=== PATIENT | female | born 1940 | race Caucasian/White ===

== ENCOUNTER 2022-12-27 16:42 | Inpatient (IN) | payer MEDICARE, OTHER ==
[~2022-12-27 16:42] MED LIST: Iopamidol-370 76% 500 ML 1 ML ONE
[2022-12-27 17:30] LABS: #Basophils 0.1 thou/uL (0.0-0.2); #Eosinphils 0.5 thou/uL (0.0-0.7); #Lymphocytes 1.7 thou/uL (1.20-3.40); #Monocytes 0.6 thou/uL (0.11-0.59); %Basophils 1.6 % (0.0-1.0); %Eosinophils 7.8 % (0.0-10.0); %Lymphocytes 29.5 % (21.0-51.0); %Monocytes 9.4 % (0.0-10.0); %Neutrophils 51.7 % (42.0-75.0); Hemoglobin 13.6 g/dL (12.0-16.0); Mean Corpuscular HGB CONC 32.3 g/dL (32.0-36.0); Mean Corpuscular Hemoglobin 29.5 pg (27.0-31.0); Mean Corpuscular Volume 91.3 fl (78.0-98.0); Mean Platelet Volume 8.5 fL (7.4-10.4); Platelet Count 200 10x3/uL (130-400); RBC Distribution Width 12.1 % (11.5-14.5); White Blood Cell (WBC) Count 5.8 10x3/uL (4.8-10.8)
[2022-12-27] MEDS ORDERED: Diltiazem 125 MG/25 ML ONE (17:49)
[2022-12-27] MEDS ORDERED: niCARdipine 25 MG/10 ML VIAL ONE ×2 (17:51)
[2022-12-27] MEDS ORDERED: Tenecteplase 50 MG ONE (17:51)
[2022-12-27 18:09] LABS: ALT (SGPT) 22 U/L (8-55); AST (SGOT) 24 U/L (5-34); Albumin 3.9 g/dL (3.4-4.8); Alkaline Phosphatase 98 U/L (40-110); Anion Gap 17 mmol/L (10-20); BUN (Urea Nitrogen) 22 mg/dL (9.8-20.1); Bilirubin, Total 0.4 mg/dL (0.2-1.2); Calc. Creatinine Clearance 0 mL/min (70-130); Calcium 9.3 mg/dL (7.8-10.44); Carbon Dioxide 19 mmol/L (23-31); Chloride 107 mmol/L (98-107); Estimated GFR 78; Globulin 3.3 g/dL (2.4-3.5); Glucose 82 mg/dL (83-110); Potassium 4.3 mmol/L (3.5-5.1); Protein, Total 7.2 g/dL (5.8-8.1); Sodium 139 mmol/L (136-145)
[2022-12-27 20:16] LABS: SARS-CoV-2 NAA Rapid Test Not Detected (NotDetected)
[2022-12-27] MEDS ORDERED: hydrALAZINE 20 MG/ML VIAL SLOW IVP PRN (20:30)
[2022-12-27] MEDS ORDERED: niCARdipine 25 MG in Sodium Chloride 0.9% 250 ML 250 ML IVPB PRN (20:30)
[2022-12-27] MEDS ORDERED: Labetalol HCl 100 MG/20 ML VIAL SLOW IVP PRN (20:30)
[2022-12-27] MEDS ORDERED: Acetaminophen 325 MG TAB PO PRN (20:37)
[2022-12-27] MEDS ORDERED: Ondansetron PF 4 MG/2 ML Vial IVP PRN (20:37)
[2022-12-27] MEDS ORDERED: Acetaminophen 650 MG Suppository PR PRN (20:37)
[2022-12-27] MEDS ORDERED: Ondansetron ODT 4 MG TAB PO PRN (20:37)
[2022-12-27] MEDS ORDERED: Electrolyte Replacement Protocol 1 EACH FS PRN (20:40)
[2022-12-27 20:42] VITALS: BMI 27.8
[2022-12-27] MEDS ORDERED: Milk Of Magnesia 30 ML UDCUP PO PRN (21:06)
[2022-12-27] MEDS ORDERED: Bisacodyl 10 MG SUPP PR PRN (21:06)
[2022-12-27] MEDS ORDERED: Communication Order-Pharmacy FS SCH (21:06)
[2022-12-27] MEDS: Dextrose 5 % And 0.9 % NaCl 1,000 ML IV SCH (21:32)
[2022-12-27] MEDS: Famotidine/PF 20 mg/2ml Vial SLOW IVP SCH (21:33)
[2022-12-27] MEDS: Communication Order-Pharmacy FS SCH (21:33)
[2022-12-27] MEDS: Atorvastatin Calcium 40 MG TAB PO SCH (21:49)
[2022-12-28] MEDS ORDERED: FLU VACC QS2022-23(65YR UP)/PF 240 MCG/0.7 ML SYRINGE IM ONE (07:30)
[2022-12-28] MEDS: Dextrose 5 % And 0.9 % NaCl 1,000 ML IV SCH (09:25)
[2022-12-28 09:31] LABS: Bilirubin Negative (Negative); Blood, Urine 2+ (Negative); Clarity Clear (Clear); Glucose, Urine (Dipstick) Normal (Negative); Ketone, Urine Negative (Negative); Leukocyte Negative Leu/uL (Negative); Nitrite Negative (Negative); Protein, Urine (Dipstick) Negative (Neg-Trace); RBC/HPF 21-50 HPF (0-3); Specific Gravity, Urine 1.025 (1.002-1.036); Squamous Epithelial 0-3 HPF (0-3); Urobilinogen Normal mg/dL (Less than 2); pH, Urine 6.5 (5.0-9.0)
[2022-12-28 09:41] LABS: Bacteria/HPF 2+ HPF (None Seen); WBC/HPF 0-3 HPF (0-3)
[2022-12-28] MEDS: Famotidine/PF 20 mg/2ml Vial SLOW IVP SCH ×2 (10:27→20:27)
[2022-12-28] MEDS: Montelukast Sodium 10 mg Tablet PO SCH (11:16)
[2022-12-28 18:57] LABS: #Eosinphils 0.2 thou/uL (0.0-0.7); #Lymphocytes 1.5 thou/uL (1.20-3.40); #Monocytes 0.8 thou/uL (0.11-0.59); #Neutrophils 4.9 thou/uL (1.40-6.50); %Basophils 0.5 % (0.0-1.0); %Eosinophils 3.2 % (0.0-10.0); %Lymphocytes 20.5 % (21.0-51.0); %Monocytes 10.6 % (0.0-10.0); %Neutrophils 65.2 % (42.0-75.0); Hemoglobin 12.3 g/dL (12.0-16.0); Mean Corpuscular HGB CONC 33.3 g/dL (32.0-36.0); Mean Corpuscular Hemoglobin 30.2 pg (27.0-31.0); Mean Corpuscular Volume 90.8 fl (78.0-98.0); Mean Platelet Volume 8.1 fL (7.4-10.4); Platelet Count 199 10x3/uL (130-400); RBC Distribution Width 12.1 % (11.5-14.5); Red Blood Cell (RBC) Count 4.08 mill/uL (4.20-5.40); White Blood Cell (WBC) Count 7.5 10x3/uL (4.8-10.8)
[2022-12-28 19:19] LABS: Anion Gap 10 mmol/L (10-20); BUN (Urea Nitrogen) 7 mg/dL (9.8-20.1); Calc. Creatinine Clearance 84 mL/min (70-130); Carbon Dioxide 24 mmol/L (23-31); Cardiac Risk 4.4 (Less than 4.5); Chloride 107 mmol/L (98-107); Cholesterol 236 mg/dl (< 200 Desired); Estimated GFR 88; Glucose 102 mg/dL (83-110); HDL Cholesterol 54 mg/dL (>60 Neg Risk); LDL Cholesterol, Calculated 160 mg/dL; Potassium 3.2 mmol/L (3.5-5.1); Sodium 138 mmol/L (136-145); Triglycerides 110 mg/dL (Less than 150)
[2022-12-28] MEDS: Atorvastatin Calcium 40 MG TAB PO SCH (20:27)
[2022-12-28] MEDS ORDERED: Potassium Chloride 20 MEQ TAB PO SCH (21:45)
[2022-12-28] MEDS: Communication Order-Pharmacy FS SCH (22:00)
[2022-12-29] MEDS ORDERED: Amlodipine 5 MG TAB PO SCH (08:45)
[2022-12-29] MEDS ORDERED: Aspirin 81 mg Enteric Coated Tablet PO SCH (09:00)
[2022-12-29] MEDS: Montelukast Sodium 10 mg Tablet PO SCH (09:33)
[2022-12-29] MEDS: Amlodipine 5 MG TAB PO SCH (09:33)
[2022-12-29] MEDS: Aspirin 81 mg Enteric Coated Tablet PO SCH (09:33)
[2022-12-29] MEDS: Famotidine/PF 20 mg/2ml Vial SLOW IVP SCH ×2 (09:34→20:03)
[2022-12-29] MEDS: Atorvastatin Calcium 40 MG TAB PO SCH (20:03)
[2022-12-30 00:20] VITALS: TEMP 97.7
[2022-12-30] MEDS ORDERED: Potassium Bicarbonate/Cit Ac 20 MEQ TAB PER TUBE SCH (08:00)
[2022-12-30] MEDS ORDERED: Famotidine 20 MG TAB PO SCH (09:00)
[2022-12-30] MEDS: Montelukast Sodium 10 mg Tablet PO SCH (09:12)
[2022-12-30] MEDS: Amlodipine 5 MG TAB PO SCH (09:13)
[2022-12-30] MEDS: Aspirin 81 mg Enteric Coated Tablet PO SCH (09:15)
[2022-12-30 12:23] LABS: Potassium 4.3 mmol/L (3.5-5.1)
[2022-12-30 14:12] VITALS: BP 113/69
== END 2022-12-30 19:05 | DRG 63 ==
LOC: ERS 16:42 → CCU 18:56
PROVIDERS: ADMIT Internal Medicine; ATTEND Internal Medicine
DX: I63.512 Cerebral infarction due to unspecified occlusion or stenosis of left middle cerebral artery (principal); Z66 Do not resuscitate; R29.704 NIHSS score 4; R47.01 Aphasia; Z20.822 Contact with and (suspected) exposure to COVID-19; E78.5 Hyperlipidemia, unspecified; I10 Essential (primary) hypertension; E87.6 Hypokalemia; J45.909 Unspecified asthma, uncomplicated; R33.9 Retention of urine, unspecified; G47.33 Obstructive sleep apnea (adult) (pediatric); R29.810 Facial weakness; R26.89 Other abnormalities of gait and mobility; I08.1 Rheumatic disorders of both mitral and tricuspid valves; Z91.14 Patient's other noncompliance with medication regimen; Z28.21 Immunization not carried out because of patient refusal; Z88.2 Allergy status to sulfonamides; Z87.891 Personal history of nicotine dependence; Z99.89 Dependence on other enabling machines and devices; Z98.890 Other specified postprocedural states
CPT/HCPCS: 36415; 70450; 70496; 70498; 70551; 80048; 80053; 80061; 81001; 83605; 84132; 84443; 84484; 85025; 93005; 93306; J0360; J1650; J3101; J7042; J7050; Q9967; S0028; U0002

== ENCOUNTER 2023-07-10 09:09 | Emergency (ER) | payer MEDICARE, OTHER ==
[2023-07-10 09:52] LABS: #Basophils 0.1 thou/uL (0.0-0.2); #Eosinphils 0.3 thou/uL (0.0-0.7); #Monocytes 0.5 thou/uL (0.11-0.59); #Neutrophils 3.7 thou/uL (1.40-6.50); %Basophils 0.9 % (0.0-1.0); %Eosinophils 5.7 % (0.0-10.0); %Lymphocytes 20.5 % (21.0-51.0); %Monocytes 8.3 % (0.0-10.0); %Neutrophils 64.1 % (42.0-75.0); Hematocrit 44.2 % (36.0-47.0); Mean Corpuscular HGB CONC 31.7 g/dL (32.0-36.0); Mean Corpuscular Hemoglobin 29.2 pg (27.0-31.0); Mean Corpuscular Volume 92.1 fl (78.0-98.0); Mean Platelet Volume 10.3 fL (7.4-10.4); Platelet Count 244 10x3/uL (130-400); RBC Distribution Width 13.2 % (11.5-14.5); White Blood Cell (WBC) Count 5.8 10x3/uL (4.8-10.8)
[2023-07-10] MEDS ORDERED: Aspirin Chewable 81 MG TAB ONE (10:05)
[2023-07-10 10:18] LABS: Troponin I Less than 0.010 ng/mL (< 0.028)
[2023-07-10 10:23] LABS: ALT (SGPT) 25 U/L (8-55); AST (SGOT) 21 U/L (5-34); Albumin 4.3 g/dL (3.4-4.8); Alkaline Phosphatase 87 U/L (40-110); Anion Gap 12 mmol/L (10-20); BUN (Urea Nitrogen) 10 mg/dL (9.8-20.1); Bilirubin, Total 0.5 mg/dL (0.2-1.2); Calc. Creatinine Clearance 0 mL/min (70-130); Calcium 9.6 mg/dL (7.8-10.44); Carbon Dioxide 29 mmol/L (23-31); Chloride 104 mmol/L (98-107); Estimated GFR 75; Globulin 3.5 g/dL (2.4-3.5); Glucose 89 mg/dL (83-110); Lipase 13 U/L (8-78); Potassium 3.8 mmol/L (3.5-5.1); Protein, Total 7.8 g/dL (5.8-8.1); Sodium 141 mmol/L (136-145)
[2023-07-10 10:55] LABS: SARS-CoV-2 NAA Rapid Test Not Detected (NotDetected)
[2023-07-10 11:36] LABS: Bacteria/HPF None Seen HPF (None Seen); Bilirubin Negative (Negative); Blood, Urine Negative (Negative); CAUTI Indications for Culture Pelvic or flank pain; Clarity Clear (Clear); Glucose, Urine (Dipstick) Normal (Negative); Ketone, Urine Negative (Negative); Leukocyte Negative Leu/uL (Negative); Nitrite Negative (Negative); Protein, Urine (Dipstick) Negative (Neg-Trace); RBC/HPF 0-3 HPF (0-3); Specific Gravity, Urine 1.017 (1.002-1.036); Squamous Epithelial 0-3 HPF (0-3); Urobilinogen Normal mg/dL (Less than 2); WBC/HPF 0-3 HPF (0-3)
[2023-07-10 11:38] LABS: Urine Culture Reflex No No
== END 2023-07-10 12:53 | disposition home or self-care (01) ==
LOC: ERS 09:09
DX: R07.9 Chest pain, unspecified (principal); I10 Essential (primary) hypertension; Z20.822 Contact with and (suspected) exposure to COVID-19; Z79.01 Long term (current) use of anticoagulants; Z79.899 Other long term (current) drug therapy
CPT/HCPCS: 0240U; 71045; 80053; 81001; 83690; 83880; 84484; 85025; 93005; 36415

== ENCOUNTER 2023-12-17 12:55 | Emergency (ER) | payer MEDICARE, OTHER | END 2023-12-17 15:15 | disposition home or self-care (01) | LOC: ERS 12:55 | DX: I10 Essential (primary) hypertension (principal) | CPT/HCPCS: 93005 ==